=== PATIENT | male | born 1985 ===

== ENCOUNTER 2018-11-21 10:41 | Emergency (ER) | payer OTHER ==
[2018-11-21 10:46] VITALS: RESP 17; TEMP 98.6
[2018-11-21 10:48] VITALS: BMI 29.4
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
[2018-11-21 13:31] VITALS: BP 120/84; PULSE 87
[2018-11-21 13:44] VITALS: O2SAT 98
--- NOTE | 2018-11-21 14:29 | RAD ---
Date of service: 11/21/2018 HISTORY: shortness of breath, cough COMPARISON: No prior. TECHNIQUE: Chest PA and lateral views FINDINGS: LUNGS: No active pulmonary disease. PLEURA: No significant pleural effusion identified. No pneumothorax apparent. CARDIOVASCULAR: No aortic atherosclerotic calcification present. Normal cardiac size. No pulmonary vascular congestion. OSSEOUS STRUCTURES: No significant abnormalities. VISUALIZED UPPER ABDOMEN: Normal. OTHER FINDINGS: None. IMPRESSION: No active disease.
--- NOTE | 2018-11-21 14:31 | RAD ---
Date of service: 11/21/2018 PROCEDURE: Right Ankle Radiographs. HISTORY: Unspecified right lower extremity injury. COMPARISON: None available. TECHNIQUE: 3 views obtained. FINDINGS: BONES: Normal. No fracture. JOINTS: Normal. No osteoarthritis. Ankle mortise maintained. Talar dome intact SOFT TISSUES: Normal. OTHER FINDINGS: None. IMPRESSION: Normal right ankle radiographs.
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
--- NOTE | 2018-11-21 16:33 | RAD ---
Date of service: 11/21/2018 PROCEDURE: Right Foot Radiographs. HISTORY: r/o fracture COMPARISON: None. TECHNIQUE: 3 views obtained. FINDINGS: BONES: Normal. No fracture. JOINTS: Normal. SOFT TISSUES: Normal. OTHER FINDINGS: None. IMPRESSION: Normal right foot radiographs.
--- NOTE | 2018-11-21 16:36 | RAD ---
Date of service: 11/21/2018 PROCEDURE: Radiographs of the right tibia and fibula. HISTORY: r/o fracture COMPARISON: None available TECHNIQUE: Frontal and lateral views obtained. 2 views obtained. FINDINGS: BONES: There is a spiral fracture of the proximal fibular diaphysis, minimally displaced. There is no angulation. There is no other fracture identified. JOINT SPACES: Unremarkable. OTHER FINDINGS: None. IMPRESSION: Minimally displaced spiral fracture of the proximal right fibular diaphysis.
--- NOTE | 2018-11-21 18:57 | CARD ---
APPROVED REPORT Date of service: 11/21/2018 EKG Measurement Heart [id number] <Conclusion> Normal sinus rhythm Normal ECG
== END 2018-11-21 13:18 | disposition home or self-care (01) ==
LOC: H.ER 10:41
DX: S82.831A Other fracture of upper and lower end of right fibula, initial encounter for closed fracture (principal); Z87.891 Personal history of nicotine dependence; V13.4XXA Pedal cycle driver injured in collision with car, pick-up truck or van in traffic accident, initial encounter; Y93.55 Activity, bike riding